=== PATIENT | male | born 1995 | race Caucasian/White ===

== ENCOUNTER → 2017-01-31 | Outpatient (CLI) | payer BC ==
--- NOTE | 2017-01-31 13:23 | DIAGNOSTIC IMAGING REPORT ---
RIGHT SHOULDER MIN 2 VIEWS ROUTINE CLINICAL HISTORY: RIGHT SHOULDER PAIN Right COMPARISON: None. DISCUSSION: Potential subtle grade 1 separation right acromioclavicular joint. No evidence for fracture or dislocation. IMPRESSION: Subtle minimal grade 1 separation right acromioclavicular joint Electronically signed by: Theo Teixeira M.D. 01/31/2017 1:22 PM Dictated Date/Time: 01/31/2017 1:19 PM
== END | disposition home or self-care (01) ==
LOC: C.RAD1850 13:03
PROVIDERS: ATTEND Nurse Practitioner Family
DX: M25.511 Pain in right shoulder (principal); R29.898 Other symptoms and signs involving the musculoskeletal system